=== PATIENT | female | born 1985 | race American Indian/Alaskan Native ===

== ENCOUNTER 2017-07-30 07:32 | Inpatient (IN) | payer BC, MEDICAID ==
[2017-07-30] MEDS ORDERED: LACTATED RINGERS 1,000 ML ONE (07:56)
[2017-07-30] MEDS: LACTATED RINGERS 1,000 ML IV SCH ×2 (08:05→09:06)
[2017-07-30] MEDS ORDERED: SUBLIMAZE ONE (08:11)
[2017-07-30] MEDS: SUBLIMAZE IV PRN ×2 (08:30→09:06)
[2017-07-30] MEDS ORDERED: BRETHINE SUB-Q PRN ×2 (08:52→12:57)
[2017-07-30] MEDS ORDERED: BRETHINE IVP PRN ×2 (08:52→12:57)
[2017-07-30 08:53] LABS: Hemoglobin 12.2 gm/dl (10.1-14.3); Mean Corpuscular HGB Conc 34 % (30-34); Mean Corpuscular Hemoglobin 27 pg (28-32); Mean Corpuscular Volume 80 fl (79-97); Platelet Count 224 K/mm3 (140-440); Red Cell Distribution Width 16.7 % (13.2-15.2); White Blood Count 10.6 K/mm3 (4.5-11.0)
[2017-07-30] MEDS ORDERED: XYLOCAINE 2% INFILTRATI ONE ×3 (09:00→15:31)
[2017-07-30] MEDS ORDERED: LACTATED RINGERS 1,000 ML IV SCH ×2 (09:00→13:00)
[2017-07-30] MEDS ORDERED: PITOCin/NS 30 UNIT/500ML 30 UNITS/500 ML BAG IV SCH ×4 (09:00→13:00)
[2017-07-30] MEDS ORDERED: ePHEDrine SULFATE IV PRN ×3 (09:00→12:57)
[2017-07-30] MEDS ORDERED: PITOCin/NS 20 UNIT/1000ML DRIP 20 UNITS/1,000 ML BAG IV SCH ×4 (09:00→20:00)
--- NOTE | 2017-07-30 09:21 | History and Physical Report ---
History of Present Illness Date of examination: 07/30/17 Date of admission: 07/30/17 07:34 Chief complaint: srom clear at 6am and contractions History of present illness: This is a 31 yo EDC 08/01/17 at 39 + 4 weeks here for srom clear at 6am . she reports good fm and also reports contractions. She is patient of [facility] since 10 weeks. Review of chart Morbid obesity hx of right ectopic with salpingectomy + HSV no lesios on valtrex LGA fetus 92% 9 pounds A+ antibody neg Rubella IMM RPR nr urine culture neg hep neg HIV neg plt 233 HSV2 neg sickle normal pascual neg chlam neg DM 106 h/h 11/35.5 DM 116 EFW 4110 HELLEN 18 vertex posterior placenta pascual neg chlam neg GBS neg Past History Past Medical History: no pertinent history Past Surgical History: no surgical history TAX EXAMINER History: herpes Family/Genetic History: none Social history: no significant social history, single. denies: smoking, alcohol abuse, prescription drug abuse - Obstetrical History Expected Date of Delivery: 08/01/17 Actual Gestation: 39 Week(s) 5 Day(s) : 3 Para: 1 Hx # Term Pregnancies: 1 Number of Pregnancies: 0 Spontaneous Abortions: 1 Induced : 0 Number of Living Children: 1 Medications and Allergies Allergies Allergy/AdvReac Type Severity Reaction Status Date / Time Latex, Natural Rubber AdvReac Hives Verified 12/12/15 20:48 Home Medications Medication Instructions Recorded Confirmed Last Taken Type Valacyclovir HCl [Valtrex] 1,000 mg PO QDAY 07/30/17 07/30/17 07/28/17 History Active Meds: Active Medications Fentanyl (Sublimaze) 100 mcg IV Q2H PRN PRN Reason: Labor Pain Last Admin: 07/30/17 09:06 Dose: 100 mcg Lactated Ringer's (Lactated Ringers) 1,000 mls @ 125 mls/hr IV DIRECT MUKESH Oxytocin/Sodium Chloride (Pitocin/Ns 20 Unit/1000ml Drip) 20 units in 1,000 mls @ 125 mls/hr IV DIRECT MUKESH Oxytocin/Sodium Chloride (Pitocin/Ns 30 Unit/500ml) 30 units in 500 mls @ 0 mls /hr IV TITR MUKESH; As Directed PRN Reason: Protocol Oxytocin/Sodium Chloride (Pitocin/Ns 30 Unit/500ml) 30 units in 500 mls @ 1 mls /hr IV TITR MUKESH; 1 MILLIUNITS/MIN PRN Reason: Protocol Mineral Oil (Mineral Oil) 30 ml PO QHS PRN PRN Reason: Constipation Review of Systems All systems: negative Genitourinary: leakage of fluid, contractions - Vital Signs Vital signs: Vital Signs Pulse BP 107 H 129/64 07/30/17 08:00 07/30/17 08:00 Temp Pulse Resp BP Pulse Ox 98.3 F 107 H 22 129/64 07/30/17 08:13 07/30/17 08:00 07/30/17 08:30 07/30/17 08:00 - Obstetrical FHR: category 1 Uterine Contraction Monitor Mode: External Cervical Dilatation: 3 Cervical Effacement Percentage: 60 station: -2 Uterine Contraction Pattern: Regular Uterine Tone Measurement Phase: Contraction Uterine Contraction Intensity: Moderate Results Result Diagrams: 07/30/17 08:00 Abnormal lab results 07/30/17 Range/Units 08:00 MCH 27 L (28-32) pg RDW 16.7 H (13.2-15.2) % All other labs normal. Assessment and Plan A/P IUP 39+ weeks GBS neg desires epidural ivf, labs expect vaginal delivery
--- NOTE | 2017-07-30 09:49 | Anesthesia Consultation ---
Anesthesia Consult and Med Hx Date of service: 07/30/17 - Airway Anesthetic Teeth Evaluation: Good ROM Head & Neck: Adequate Mental/Hyoid Distance: Adequate Mallampati Class: Class II Intubation Access Assessment: Good - Pulmonary Exam CTA: Yes - Cardiac Exam Cardiac Exam: No Murmur - Pre-Operative Health Status ASA Pre-Surgery Classification: ASA2 Proposed Anesthetic Plan: Epidural - Pulmonary Hx Smoking: Yes (previous smoker) Hx Asthma: No COPD: No Hx Pneumonia: No - Cardiovascular System Hx Hypertension: No - Central Nervous System Hx Seizures: No Hx Psychiatric Problems: No - Endocrine Hx Renal Disease: No Hx End Stage Renal Disease: No Hx Hypothyroidism: No Hx Hyperthyroidism: No - Hematic Hx Anemia: No Hx Sickle Cell Disease: No - Other Systems Hx Alcohol Use: No
[2017-07-30] MEDS ORDERED: fentaNYL-BUPIV 2 MCG/ML-0.125% 200 MCG/100 ML BAG EPIDURAL SCH (10:00)
[2017-07-30] MEDS ORDERED: NARCAN 2 MG/2 ML IV PRN (10:00)
[2017-07-30] MEDS ORDERED: ZOFRAN IV PRN ×2 (12:57→19:22)
[2017-07-30] MEDS ORDERED: PHENERGAN PO PRN ×2 (12:57→19:22)
[2017-07-30] MEDS ORDERED: NARCAN 0.4 MG/1 ML IV PRN (12:57)
--- NOTE | 2017-07-30 18:00 | Procedure Note ---
OB Delivery Note - Delivery Date of Delivery: 07/30/17 Surgeon: TRENA GOODMAN Estimated blood loss: 500cc - Vaginal Delivery presentation: vertex Delivery position: OA Intrapartum events: shoulder dystocia Delivery induction: none Delivery augmentation: pitocin Delivery monitor: external FHT, external uterine Route of delivery: Delivery placenta: spontaneous Delivery cord: 3 umbilical vessels Episiotomy: none Delivery laceration: none Anesthesia: epidural Delivery comments: Date:07/30/17 This is a 31 yo at 39 weeks with a vaginal delivery complicated by shoulder dystocia. Shoulder dystocia was diagnosed based on presentation minimal turtle sign,, EFW 9 pounds and after delivery of head there was 50 sec delay between head and shoulders . The head was in a DIPAK presentation The following individuals were present at the delivery Kenyatta Narayan RN, Shaylee Lindquist RN, Lili BENTLEY , Madelin Hdz RNC and Bartolo Joseph RT Pediatricians were stat called to the delivery at the time of diagnosis of the shoulder dystocia. The following maneuvers listed in order were used in an attempt to resolve the shoulder dystocia. Janeth ( initially performed with pushing) Suprapubic pressure by Shaylee Lindquist RN Kenney screw, delivery of posterior arm, clavical fracture, nor Zavenelli was not attempted due to the resolution of the dystocia secondary to first maneuvers . An episiotomy was not performed. There were no lacerations. The time elapsed from delivery of the head to delivery of the body was 1734 to 1735 ( 50 sec total ) . The appeared at delivery with decreased overall movement in left arm. positive hand grasp and movement of all five digits, scores were 8 and 9. Weight 9# 1.3ounce The placenta appeared intact and was sent to pathology. EBL 500 cc Patient tolerated procedure well. The mother appeared appropriate and happy thanking for delivery immediately . I, Dr. Goodman discussed the shoulder dystocia with the patient and her family and its potential implications prior to delivery ( early this am ) and Adri Dancing Teacher discussed shoulder dystocia and implications throughout entire . I discussed weight of baby this am after coming in with [facility]OM . The mother and boyfriend expressed concern regarding left arm weakness but hand has appropriate movement . I spoke with Peds to evaluate baby for the palsy of the left arm -Dr. Whatley and ordered xray of clavicle.
[2017-07-30] MEDS ORDERED: PHENERGAN PR PRN (19:22)
[2017-07-30] MEDS ORDERED: MILK OF MAGNESIA PO PRN (19:22)
[2017-07-30] MEDS ORDERED: PERCOCET 5/325 PO PRN (19:22)
[2017-07-30] MEDS ORDERED: DULCOLAX PR PRN (19:22)
[2017-07-30] MEDS ORDERED: TUCKS PAD TP PRN (19:22)
[2017-07-30] MEDS ORDERED: LANSINOH TP PRN (19:22)
[2017-07-30] MEDS ORDERED: BENADRYL PO PRN (19:22)
[2017-07-30] MEDS ORDERED: TYLENOL PO PRN (19:22)
[2017-07-30] MEDS ORDERED: NORCO 5/325 PO PRN (19:22)
[2017-07-30] MEDS ORDERED: MOTRIN PO SCH (20:00)
[2017-07-30] MEDS ORDERED: SENOKOT S PO SCH (20:00)
[2017-07-30] MEDS ORDERED: SODIUM CHLORIDE FLUSH SYRINGE 10 ML IV NR (20:00)
[2017-07-30] MEDS ORDERED: MINERAL OIL PO PRN ×2 (22:00)
--- NOTE | 2017-07-31 08:05 | Progress Note ---
Assessment and Plan A: PPD#1 s/p at term complicated by shoulder dystocia, morbid obesity P: Routine care. Anticipate discharge tomorrow. Continue to monitor movement of baby's left arm Subjective - Subjective Date of service: 07/31/17 Principal diagnosis: s/p at term complicated by shoulder dystocia Interval history: Pt without complaints. She does report minimal movement of baby's left arm. Patient reports: appetite normal, voiding normally, ambulating normally : doing well (minimal movement of left arm ) Objective - Vital Signs Latest vital signs: Vital Signs Temp Pulse Resp BP BP 07/31/17 04:25 98.0 F 88 20 112/66 07/30/17 21:05 99.1 F 90 20 125/61 07/30/17 19:34 18 07/30/17 19:12 102 H 108/59 07/30/17 18:57 102 H 104/58 07/30/17 18:42 103 H 114/53 07/30/17 18:27 104 H 112/55 07/30/17 18:12 104 H 121/55 07/30/17 17:57 111 H 119/59 07/30/17 17:53 98.2 F 20 07/30/17 17:32 126 H 142/89 07/30/17 17:03 95 H 137/72 07/30/17 16:32 110 H 123/68 07/30/17 16:02 108 H 93/43 07/30/17 15:33 89 129/68 07/30/17 15:02 97 H 113/58 07/30/17 14:33 95 H 106/53 07/30/17 14:02 93 H 116/58 07/30/17 13:32 96 H 117/55 07/30/17 13:02 96 H 104/49 07/30/17 12:32 96 H 121/59 07/30/17 12:02 95 H 119/65 07/30/17 11:32 93 H 117/65 07/30/17 11:02 100 H 117/71 07/30/17 10:31 104 H 109/56 07/30/17 10:29 90 111/55 07/30/17 10:27 100 H 22 111/55 07/30/17 10:25 90 108/59 07/30/17 10:23 108 H 102/54 07/30/17 10:21 101 H 110/55 07/30/17 10:19 106 H 113/57 07/30/17 10:17 96 H 113/59 07/30/17 10:15 105 H 114/56 07/30/17 10:13 107 H 111/59 07/30/17 10:11 98 H 118/60 07/30/17 10:09 104 H 110/58 07/30/17 10:07 95 H 114/60 07/30/17 10:05 100 H 107/55 07/30/17 10:03 94 H 118/58 07/30/17 10:01 107 H 115/59 07/30/17 09:59 100 H 123/62 07/30/17 09:58 123 H 103/55 07/30/17 09:56 109 H 120/56 07/30/17 09:54 122 H 113/55 07/30/17 09:51 102 H 126/66 07/30/17 09:49 112 H 126/68 07/30/17 09:47 108 H 136/72 07/30/17 09:45 113 H 123/65 07/30/17 09:43 121 H 129/71 07/30/17 09:41 120 H 134/76 07/30/17 09:39 113 H 127/74 07/30/17 09:38 110 H 137/70 07/30/17 08:30 22 07/30/17 08:13 98.3 F 22 Intake and Output 07/30/17 07/31/17 07/31/17 22:59 06:59 14:59 Intake Total 10.267 240 Output Total 500 600 Balance -489.733 -360 Intake: IV 10.267 PITOCin/NS 30 UNIT/500ML 10.267 30 units In 500 ml @ As Directed IV TITR MUKESH Rx#: [id number] Oral 240 Output: Urine 500 600 Indwelling Catheter 500 600 Other: Total, Intake Amount 240 Total, Output Amount 500 600 # Voids Void 1 Estimated Blood Loss 500 - Exam Breasts: Present: deferred Cardiovascular: Present: Regular rate Lungs: Present: Clear to auscultation Abdomen: Present: soft (obese ) Uterus: Present: fundal height at umbilicus Extremities: Present: normal - Labs Labs: Abnormal lab results 07/30/17 Range/Units 08:00 MCH 27 L (28-32) pg RDW 16.7 H (13.2-15.2) %
--- NOTE | 2017-07-31 08:11 | Discharge Summary ---
Providers - Providers Date of Admission: 07/30/17 07:34 Date of discharge: 08/01/17 Attending physician: TRENA HAWLEY MD Primary care physician: TRENA HAWLEY MD Hospitalization Reason for admission: rupture of membranes Delivery: Procedure details: Please see delivery note. Episiotomy: none Laceration: none Other procedures: none complications: none Discharge diagnosis: IUP at term delivered [place] baby: female Hospital course: Pt was admitted with rupture of membranes and she went on to have an complicated by shoulder dystocia with decreased movement of left arm. Her course was uncomplicated and she met discharge criteria on PPD#2. Condition at discharge: Stable Disposition: DC-01 TO HOME OR SELFCARE - Discharge Diagnoses (1) Morbid obesity Status: Acute (2) Term of female Status: Acute (3) Shoulder dystocia during labor and delivery, delivered Status: Acute Plan - Discharge Medications Prescriptions: HYDROcodone/APAP 5-325 [[place] 5/325] 1 each PO Q6HR PRN #30 tablet PRN Reason: Pain Ibuprofen [Motrin] 800 mg PO Q8HR PRN #30 tablet PRN Reason: Pain - Provider Discharge Summary Activity: routine, no sex for 6 weeks, no heavy lifting 4 weeks, no strenuous exercise Diet: routine Instructions: routine Additional instructions: [] Smoking cessation referral if applicable(refer to patient education folder for contact #) [] Refer to [facility] Booklet Call your doctor immediately for: * Fever > 100.5 * Heavy vaginal bleeding ( >1 pad per hour) * Severe persistent headache * Shortness of breath * Reddened, hot, painful area to leg or breast * Drainage or odor from incision. * Keep incision clean and dry at all times and follow doctor's instructions regarding bathing/showering - Follow up plan Follow up: TRENA HAWLEY MD [Primary Care Provider] - 08/28/17 ( exam- please call for appt )
[2017-07-31 09:34] LABS: Hematocrit 35.9 % (30.3-42.9); Hemoglobin 11.7 gm/dl (10.1-14.3)
[2017-07-31] MEDS: PRENATAL VITAMIN PO SCH (10:13)
[2017-07-31] MEDS: COLACE PO SCH ×2 (10:13→21:28)
[2017-07-31] MEDS: MOTRIN PO SCH ×3 (12:10→23:16)
[2017-07-31] MEDS: SENOKOT S PO SCH (16:55)
[2017-07-31] MEDS ORDERED: BOOSTRIX IM ONE (22:00)
[2017-08-01] MEDS: MOTRIN PO SCH ×2 (06:00→12:25)
[2017-08-01] MEDS: SENOKOT S PO SCH (10:21)
[2017-08-01] MEDS: COLACE PO SCH (10:21)
[2017-08-01] MEDS: PRENATAL VITAMIN PO SCH (10:21)
[2017-08-01 19:01] VITALS: BP 132/75
== END 2017-08-01 17:53 | disposition home or self-care (01) | DRG 774 ==
LOC: TRG 07:32 → LD 07:34 → OB 20:38
PROVIDERS: ADMIT Obstetrics & Gynecology; ATTEND Obstetrics & Gynecology
PROC: 10E0XZZ Delivery of Products of Conception, External Approach (ICD-10-PCS; principal; 2017-07-30)
PROC: 3E0S3BZ Introduction of Anesthetic Agent into Epidural Space, Percutaneous Approach (ICD-10-PCS; 2017-07-30)
PROC: 00HU33Z Insertion of Infusion Device into Spinal Canal, Percutaneous Approach (ICD-10-PCS; 2017-07-30)
DX: O42.02 Full-term premature rupture of membranes, onset of labor within 24 hours of rupture (principal); O98.52 Other viral diseases complicating childbirth; Z68.42 Body mass index [BMI] 45.0-49.9, adult; O66.0 Obstructed labor due to shoulder dystocia; O99.214 Obesity complicating childbirth; Z3A.39 39 weeks gestation of pregnancy; Z37.0 Single live birth; E66.01 Morbid (severe) obesity due to excess calories; B00.9 Herpesviral infection, unspecified; Z79.899 Other long term (current) drug therapy
CPT/HCPCS: 36415; 85014; 85018; 85027; 86592; 86850; 86900; 86901; 88307; 90471; 90715; 99211; G0463; J2590; J3010; J7120